=== PATIENT | female | born 1960 | race African-American/Black ===

== ENCOUNTER 2017-08-31 15:46 | Outpatient (CLI) | payer OTHER ==
--- NOTE | 2017-09-01 10:44 | Diagnostic Imaging Report ---
Exam: Ultrasound summation thyroid gland HISTORY thyroid nodules COMPARISON :07/08/2015 I skull Real-time ultrasound examination of thyroid gland. Multiple planes. The study compared to prior examination of the 0-0 2015. The study demonstrates right lobe of thyroid measuring 4.4 x 1.4 x 1.60 diameter. There is evidence of for multiple cystic area in the right lobe of thyroid largest one measuring 6 mm diameter The left lobe of thyroid demonstrates a multiple complex echogenic structures measuring 1.5 x 1.4 cm 1.2 x 1 severely diameter and 0.8 cm diameter might represent complex cysts. The findings essentially unchanged upper prior examination. These was intact the vascular structures are normal. IMPRESSION 1. Multiple cystic areas of the right lobe of thyroid. Complex hypoechoic structures with septations in the left lobe of thyroid largest one measuring 1.5 cm diameter. Ultrasound-guided aspiration is recommended.
== END 2017-08-31 16:00 | disposition home or self-care (01) ==
LOC: EEVIPCON 15:46 → RAD 15:46
DX: E04.2 Nontoxic multinodular goiter (principal)
CPT/HCPCS: 76536-TC

== ENCOUNTER 2018-04-26 16:49 | Emergency (ER) | payer OTHER ==
--- NOTE | 2018-04-26 17:45 | ED Physician Chart ---
ED Chief Complaint/HPI - Patient Information Date Seen:: 04/26/18 Time Seen:: 17:38 Chief Complaint:: left flank pain History of Present Illness:: this is a 57 yo female who presents with left flank pain that increases with movement and is non-radiating. this patient denies fever, cough and vomiting. she denies painful urination. Allergies:: Allergies Allergy/AdvReac Type Severity Reaction Status Date / Time aspirin Allergy Verified 04/26/18 17:31 vitamin E (d-alpha Allergy Verified 04/26/18 17:30 tocopherol) Vitals:: Vital Signs - 8 hr 04/26/18 17:31 Temp 99.5 F HR 81 RR 16 BP 171/72 O2 Sat % 100 Historian:: Patient Review:: Nurse's Note Reviewed, Old Chart Reviewed ED Review of Systems - Review of Systems General/Constitutional: No fever, No chills, No weight loss, No weakness, No diaphoresis, No edema, No loss of appetite Skin: No skin lesions, No rash, No bruising Head: No headache, No light-headedness Eyes: No loss of vision, No pain, No diplopia ENT: No earache, No nasal drainage, No sore throat, No tinnitus Neck: No neck pain, No swelling, No thyromegaly, No stiffness, No mass noted Cardio Vascular: No chest pain, No palpitations, No PND, No orthopnea, No edema Pulmonary: No SOB, No cough, No sputum, No wheezing GI: No nausea, No vomiting, No diarrhea, No pain, No melena, No hematochezia, No constipation, No hematemesis, Other (left flank pain) G/U: No dysuria, No frequency, No hematuria Musculoskeletal: No bone or joint pain, No back pain, No muscle pain Endocrine: No polyuria, No polydipsia Psychiatric: No prior psych history, No depression, No anxiety, No suicidal ideation Hematopoietic: No bruising, No lymphadenopathy Allergic/Immuno: No urticaria, No angioedema Neurological: No syncope, No focal symptoms, No weakness, No paresthesia, No headache, No seizure, No dizziness, No confusion, No vertigo ED Past Medical History - Past Medical History Obtainable: Yes Past Medical History: No significant medical hx Family History: None Social History: Non Smoker, No Alcohol, No Drug Use, Employed Surgical History: Psychiatricy History: None Family Medical History - Family Member Mother History Unknown: Yes ED Physical Exam - Physical Examination General/Constitutional: Awake, Well-developed, well-nourished, Alert, No distress, GCS 15, Non-toxic appearing, Ambulatory Head: Atraumatic Eyes: Lids, conjuctiva normal, PERRL, EOMI Skin: Nl inspection, No rash, No skin lesions, No ecchymosis, Well hydrated, No lymphadenopathy ENMT: External ears, nose nl, Nasal exam nl, Lips, teeth, gums nl Neck: Nontender, Full ROM w/o pain, No JVD, No nuchal rigidity, No bruit, No mass, No stridor Respiratory: Nl effort/Exclusion, Clear to Auscultation, No Wheeze/Rhonchi/Rales Cardio Vascular: RRR, No murmur, gallop, rubs, NL S1 S2 GI: No tenderness/rebounding/guarding, No organomegaly, No hernia, Normal BS's, Nondistended, No mass/bruits, No McBurney tenderness Other GI comments:: left flank tenderness. : No CVA tenderness Extremities: No tenderness or effusion, Full ROM, normal strength in all extremities, No edema, Normal digits & nails Neuro/Psych: Alert/oriented, DTR's symmetric, Normal sensory exam, Normal motor strength, Judgement/insight normal, Mood normal, Normal gait, No focal deficits Misc: Normal back, No paraspinal tenderness ED Labs/Radiology/EKG Results - Lab Results Results: Abnormal Lab Results 04/26/18 04/26/18 04/26/18 17:49 17:49 17:49 WBC 12.9 H RBC 5.07 Hgb 14.2 Hct 43.2 MCV 85.2 MCH 28.1 MCHC Differential 33.0 RDW 14.2 Plt Count 218 MPV 9.1 Neutrophils % 78.1 Lymphocytes % 13.7 L Monocytes % 4.5 Eosinophils % 3.5 Basophils % 0.2 Sodium 139 Potassium 3.9 Chloride 105 Carbon Dioxide 24.9 Anion Gap 13.0 BUN 15 Creatinine 0.8 Est GFR ( Amer) > 60.0 Est GFR (Non-Af Amer) > 60.0 BUN/Creatinine Ratio 18.8 Glucose 125 H Calcium 9.2 Total Bilirubin 0.6 AST 18 ALT 16 Alkaline Phosphatase 67 Troponin I < 0.01 L Total Protein 7.0 Albumin 4.3 Globulin 2.7 Albumin/Globulin Ratio 1.6 TSH Urine Source Urine Color Urine Clarity Urine pH Ur Specific [place] Urine Protein Urine Glucose (UA) Urine Ketones Urine Blood Urine Nitrate Urine Bilirubin Urine Urobilinogen Ur Leukocyte Esterase Urine RBC Urine WBC Ur Epithelial Cells Urine Bacteria 04/26/18 04/26/18 17:49 18:00 WBC RBC Hgb Hct MCV MCH MCHC Differential RDW Plt Count MPV Neutrophils % Lymphocytes % Monocytes % Eosinophils % Basophils % Sodium Potassium Chloride Carbon Dioxide Anion Gap BUN Creatinine Est GFR ( Amer) Est GFR (Non-Af Amer) BUN/Creatinine Ratio Glucose Calcium Total Bilirubin AST ALT Alkaline Phosphatase Troponin I Total Protein Albumin Globulin Albumin/Globulin Ratio TSH 0.36 Urine Source CLEAN C Urine Color YELLOW Urine Clarity CLEAR Urine pH 6.5 Ur Specific [place] 1.020 Urine Protein TRACE Urine Glucose (UA) NEGATIVE Urine Ketones 15 H Urine Blood NEGATIVE Urine Nitrate NEGATIVE Urine Bilirubin NEGATIVE Urine Urobilinogen 0.2 Ur Leukocyte Esterase NEGATIVE Urine RBC 0-2 Urine WBC 0-2 Ur Epithelial Cells FEW Urine Bacteria 1+ H - Radiology Results Results: ct scan of the abdomen = nad ED Assessment - Assessment General Assessment: left lower abdominal wall muscle strain uti diverticulitis ED Septic Shock - . Is Septic Shock (SBP<90, OR Lactate>4 mmol\L) present?: No - <6hrs of presentation: Vital Signs: Vital Signs - 8 hr 04/26/18 17:31 Temp 99.5 F HR 81 RR 16 BP 171/72 O2 Sat % 100 ED Reassessment (Disposition) - Reassessment Reassessment Condition:: Improved - Diagnosis Diagnosis:: gastroenteritis - Aftercare/Follow up Instructions Aftercare/Follow-Up Instructions:: Counseled pt regarding lab results/diagnosis & need follow up, Refer to Discharge Instructions, Counseled pt & family regarding lab results/diagnosis & need follow up Medication Prescribed:: z-seth, gabapentin - Patient Disposition Discharge/Transfer:: Home Condition at Disposition:: Improved
[2018-04-26 17:55] LABS: % BASOPHILS 0.2 % (0.0-2.0); % EOSINOPHILS 3.5 % (0.0-5.0); % LYMPHOCYTES 13.7 % (20.0-50.0); % MONOCYTES 4.5 % (2.0-10.0); % NEUTROPHILS 78.1 % (40.0-80.0); EOSINOPHILE ABSOLUTE 0.5 Th/cmm (0.1-0.4); HEMATOCRIT 43.2 % (41.0-60); HEMOGLOBIN 14.2 gm/dL (12-16); LYMPHOCYTE ABSOLUTE 1.8 Th/cmm (1.5-3.0); MEAN CELL VOLUME 85.2 fl (81-100); MEAN CORPUSCULAR HEMOGLOBIN 28.1 pg (27.0-31.0); MEAN PLATELET VOLUME 9.1 fl; MONOCYTE ABSOLUTE 0.6 Th/cmm (0.3-1.0); PLATELET COUNT 218 Th/cmm (150-400); RED BLOOD COUNT 5.07 Mil/cmm (3.80-5.10); RED CELL DISTRIBUTION WIDTH 14.2 % (11.5-20.0); WHITE BLOOD COUNT 12.9 Th/cmm (4.8-10.8)
[2018-04-26 18:14] LABS: ALB/GLOB RATIO 1.6 (1.0-1.8); ALBUMIN 4.3 gm/dL (3.7-5.3); ALKALINE PHOSPHATASE 67 U/L (34-104); BILIRUBIN,TOTAL 0.6 mg/dL (0.3-1.0); BUN - UREA NITROGEN 15 mg/dL (7-25); CALCIUM SERUM 9.2 mg/dL (8.6-10.3); CARBON DIOXIDE 24.9 mEq/L (21.0-31.0); CHLORIDE 105 mEq/L (98-107); CREATININE - SERUM 0.8 mg/dL (0.6-1.2); GFR AFRICAN-AMERICAN > 60.0 ml/min (>90); GFR NON AFRICAN-AMERICAN > 60.0 ml/min; GLUCOSE 125 mg/dL (70-105); POTASSIUM SERUM 3.9 mEq/L (3.5-5.1); SGOT 18 U/L (13-39); SGPT/ALT 16 U/L (7-52); SODIUM SERUM 139 mEq/L (136-145)
[2018-04-26 18:21] LABS: URINE SOURCE CLEAN C
[2018-04-26 18:23] LABS: URINE BILIRUBIN NEGATIVE (NEGATIVE); URINE BLOOD NEGATIVE (NEGATIVE); URINE GLUCOSE (UA) NEGATIVE (NEGATIVE); URINE KETONE 15 mg/dL (NEGATIVE); URINE LEUKOCYTE ESTERASE NEGATIVE (NEGATIVE); URINE MICROSCOPIC INDICATED? YES; URINE NITRATE NEGATIVE (NEGATIVE); URINE PH 6.5 (4.6 - 8.0); URINE PROTEIN TRACE mg/dL (NEGATIVE); URINE UROBILINOGEN 0.2 E.U./dL (0.2 - 1.0)
[2018-04-26 18:32] LABS: URINE CLARITY CLEAR (CLEAR); URINE COLOR YELLOW
[2018-04-26 18:37] LABS: URINE BACTERIA 1+ /hpf (NONE SEEN); URINE EPITHELIAL CELLS FEW /lpf (FEW); URINE RBC 0-2 /hpf (0-5); URINE WBC 0-2 /hpf (0-5)
--- NOTE | 2018-04-27 10:06 | Diagnostic Imaging Report ---
CT scan of the abdomen and pelvis without intravenous contrast History: Left lower quadrant pain Total DLP equals 436 CTDI equals 9.4 Axial sections were obtained from the xiphoid process down to the pubic symphysis. The liver demonstrates a normal size and contour. No focal lesions are seen. The spleen appears normal. No abnormalities are seen in the region of the pancreas. The kidneys appear normal bilaterally. The exam of the pelvis demonstrates preservation of normal fat planes. No abnormal soft tissue masses. No abnormal fluid collections. Impression: Negative examination
== END 2018-04-26 21:00 | disposition home or self-care (01) ==
LOC: ER 16:49
DX: K52.9 Noninfective gastroenteritis and colitis, unspecified (principal); K57.92 Diverticulitis of intestine, part unspecified, without perforation or abscess without bleeding; N39.0 Urinary tract infection, site not specified; Z98.890 Other specified postprocedural states; Z88.6 Allergy status to analgesic agent; Z88.8 Allergy status to other drugs, medicaments and biological substances
CPT/HCPCS: 99284; 96372 ×2; 96374; 74176; 84484; 36415; 84443; 85025; 81001; 80053; J1885; J2060; J0696; Z7502

== ENCOUNTER 2018-04-28 12:44 | Outpatient (CLI) | payer OTHER ==
--- NOTE | 2018-04-28 14:54 | Diagnostic Imaging Report ---
Lumbar spine (5 views) HISTORY: Pain Alignment is normal. There are diffuse degenerative changes with hypertrophic spur formation noted about the endplates of all vertebrae. Narrowing of the L45 and L5-S1 disc spaces. Air is seen within the interspace at L5-S1 reflecting degenerative disc disease. Hypertrophic changes noted about the facet joints at L4-5 and a greater degree L5-S1. No acute abnormalities. IMPRESSION: 1. Diffuse degenerative changes most pronounced at L4-5 and L5-S1 2. No acute abnormalities
== END 2018-04-28 13:40 | disposition home or self-care (01) ==
LOC: RAD 12:44
DX: M51.37 Other intervertebral disc degeneration, lumbosacral region (principal)
CPT/HCPCS: 72110-TC